=== PATIENT | male | born 1945 | race Caucasian/White ===

== ENCOUNTER 2019-08-27 17:53 | Emergency (ER) | payer MEDICARE ==
[~2019-08-27] VITALS: Wt 90.7 kg
[2019-08-27] MEDS ORDERED: DOXYCYCLINE100 MG PO (18:39)
== END 2019-08-27 18:42 | disposition home or self-care (01) ==
LOC: ED 17:53
DX: S80.861A Insect bite (nonvenomous), right lower leg, initial encounter (principal); W57.XXXA Bitten or stung by nonvenomous insect and other nonvenomous arthropods, initial encounter; Y93.89 Activity, other specified; Y92.89 Other specified places as the place of occurrence of the external cause; Y99.8 Other external cause status

== ENCOUNTER 2023-09-28 11:54 | Emergency (ER) | payer MEDICARE ==
[~2023-09-28] VITALS: Ht 165.1 cm; Wt 95.3 kg
[~2023-09-28 11:54] MED LIST: DOXYCYCLINE100 MG PO
== END 2023-09-28 12:13 | disposition home or self-care (01) ==
LOC: ED 11:54
DX: S61.210A Laceration without foreign body of right index finger without damage to nail, initial encounter (principal); I25.10 Atherosclerotic heart disease of native coronary artery without angina pectoris; W26.0XXA Contact with knife, initial encounter; Y93.89 Activity, other specified; Y92.89 Other specified places as the place of occurrence of the external cause; Y99.8 Other external cause status